=== PATIENT | female | born 1975 | race Two or more races ===

== ENCOUNTER 2017-01-20 17:56 | Emergency (ER) | payer MEDICAID ==
[~2017-01-20] VITALS: Ht 154.9 cm; Wt 62.1 kg
[2017-01-20] MEDS ORDERED: IV NS 0.9% 1,000 ML BAG IV ONE (18:00)
[2017-01-20] MEDS ORDERED: FAMOTIDINE/PF INJ 20 MG/2 ML VIAL IV ONE ×2 (18:00→18:05)
[2017-01-20] MEDS ORDERED: ONDANSETRON HCL/PF 4 MG/2 ML VIAL IVP ONE (18:00)
[2017-01-20] MEDS ORDERED: ONDANSETRON HCL/PF 4 MG/2 ML VIAL ONE (18:05)
[2017-01-20] MEDS ORDERED: IV SET PRIMARY 1 EA INFUS.SET MC ONE (18:05)
[2017-01-20] MEDS ORDERED: IV NS 0.9% 1,000 ML ONE (18:05)
--- NOTE | 2017-01-20 18:05 | NUR ---
PT TO ED ROOM 08. BBRA FROM HOME: NAUSEA, ABDOMINAL PAIN x 1 DAY. A/A/O. SIDE RAILS UP. HOB ELEVATED. CONNECTED TO MONITOR. MD AT BEDSIDE FOR EVAL.
--- NOTE | 2017-01-20 18:10 | NUR ---
LAC #20 IV ACCESS. BLOOD SAMPLE COLLECTED SENT TO LAB
[2017-01-20 18:17] LABS: BASOPHILS # (AUTO) 0.2 /CMM (0.0-0.2); BASOPHILS % (AUTO) 1.4 % (0.0-2.0); EOSINOPHILS # (AUTO) 0.1 /CMM (0.0-0.7); EOSINOPHILS % (AUTO) 0.5 % (0.0-6.0); MEAN CORPUSCULAR HEMOGLOBIN 28 PG (26.0-33.0)
[2017-01-20 18:20] LABS: HEMATOCRIT 40 % (33-45); HEMOGLOBIN 13.1 g/dL (11.5-14.8); LYMPHOCYTES # (AUTO) 1.4 /CMM (0.8-4.8); LYMPHOCYTES % (AUTO) 10.3 % (20.0-44.0); MEAN CORPUSCULAR HGB CONC 33 g/dl (31.0-36.0); MEAN CORPUSCULAR VOLUME 85 fL (82-100); MONOCYTES # (AUTO) 0.5 /CMM (0.1-1.30); MONOCYTES % (AUTO) 3.6 % (2.0-12.0); NEUTROPHILS # (AUTO) 11.8 /CMM (1.8-8.9); NEUTROPHILS % (AUTO) 84.2 % (43.0-81.0); PLATELET COUNT (AUTO) 344 /CMM (150-450); RDW COEFFICIENT OF VARIATION 12.4 (11.5-15.0); RED BLOOD CELL COUNT(AUTO) 4.63 MIL/uL (4.0-5.2)
[2017-01-20 18:31] LABS: CREATININE 0.9 mg/dL (0.6-1.3); POTASSIUM 3.1 mmol/L (3.5-5.1)
[2017-01-20 18:37] LABS: ALBUMIN 4.4 g/dL (3.4-5.0); BILIRUBIN,TOTAL 0.3 mg/dL (0.2-1.0)
--- NOTE | 2017-01-20 18:39 | NUR ---
PT UNABLE TO PROVIDE WITH URINE SAMPLE. WILL TRY AGAIN LATER. ED PROVIDER NOTIFIED.
[2017-01-20 18:45] LABS: CALCIUM, SERUM 9.6 mg/dL (8.5-10.1)
--- NOTE | 2017-01-20 19:00 | NUR ---
Phong choudhary in [facility] - 01/20/17 at 1939 by LISA URINE SAMPLE COLLECTED SENT TO LAB
--- NOTE | 2017-01-20 19:21 | NUR ---
PT RECEIVED REPORT FROM [facility]. PT APPEARS COMFORTABLE. DENIES ANY PAIN AT THIS TIME.
--- NOTE | 2017-01-20 19:23 | NUR ---
URINE COLLECTED. CALLED LAB FOR SECURITY SYSTEM ENGINEER.
--- NOTE | 2017-01-20 19:38 | NUR ---
MANAGER PROPERTY AT BEDSIDE
[2017-01-20 20:00] LABS: APPEARANCE,URINE Clear (CLEAR); BLOOD, URINE Moderate Ery/uL (NEGATIVE); COLOR,URINE Yellow (YELLOW); KETONES,URINE 15 (NEGATIVE); LEUKOCYTE ESTERASE ,URINE Negative (NEGATIVE); NITRITE, URINE Negative (NEGATIVE); PH,URINE 6.5 (5.0-8.0); PROTEIN,URINE 100 mg/dl (NEGATIVE); UGLUCOSE Negative (NEGATIVE); UROBILINOGEN,URINE 0.2 EU/dL (0.2)
[2017-01-20 20:03] LABS: BILIRUBIN,URINE SMALL (NEGATIVE)
[2017-01-20 20:12] LABS: ADD URINE CULTURE NO; BACTERIA,URINE Few /HPF (None Seen); PREGNANCY TEST URINE QUAL NEGATIVE (NEGATIVE); SQUAMOUS EPITHELIAL CELL,UR Few /HPF (None Seen); WBC,URINE NONE SEEN /HPF (0-3)
[2017-01-20] MEDS ORDERED: POTASSIUM CHLORIDE 20 MEQ TAB.PRT.SR PO ONE ×2 (21:10→21:30)
--- NOTE | 2017-01-20 21:19 | NUR ---
IV removed. Catheter intact and site benign. Pressure and 4x4 applied to site. No bleeding noted. Patient discharged to home in stable condition. Written and verbal after care instructions given. Patient verbalizes understanding of instruction. ambulatory with a steady gait
[2017-01-20 21:20] VITALS: BP 118/64
== END 2017-01-20 21:20 | disposition home or self-care (01) ==
LOC: ER 17:59
DX: K29.70 Gastritis, unspecified, without bleeding (principal)
CPT/HCPCS: 36415; 76705; 80048; 80076; 81001; 83690; 84703; 85025; 93005; 96361; 96374; 96375; 99285; A4606; J2405; J3490; J7030; Z7610; 81000-TC

== ENCOUNTER 2020-08-04 23:47 | Emergency (ER) | payer MEDICAID, OTHER ==
[~2020-08-04] VITALS: Ht 149.9 cm; Wt 53.5 kg
--- NOTE | 2020-08-05 00:03 | NUR ---
BIBRA FOR C/O UPPER ABDOMEN PAIN, AND N/V. PT DENIED DIARRHEA WITH LBM: TODAY. ALSO DENIED HEMATURIA OR DYSURIA. PT AMBULATORY TO BED 3. PLACED ON A MONITOR. VSS. WILL CONT TO MONITOR ,
--- NOTE | 2020-08-05 00:05 | NUR ---
AT BED SIDE
[2020-08-05] MEDS ORDERED: LIDOCAINE VISCOUS 2% UD 15 ML UDC ONE (00:14)
[2020-08-05] MEDS ORDERED: MAG HYDROX/AL HYDROX/SIMETH 30 ML UDC ONE (00:14)
[2020-08-05] MEDS ORDERED: SIMETHICONE 80 MG TAB.CHEW ONE (00:15)
[2020-08-05] MEDS ORDERED: ONDANSETRON 4 MG TAB.RAPDIS ONE (00:15)
[2020-08-05] MEDS ORDERED: ONDANSETRON 4 MG TAB.RAPDIS SL ONE (00:30)
[2020-08-05] MEDS ORDERED: MAG HYDROX/AL HYDROX/SIMETH 30 ML UDC PO ONE (00:30)
[2020-08-05] MEDS ORDERED: LIDOCAINE VISCOUS 2% UD 15 ML UDC MM ONE (00:30)
[2020-08-05] MEDS ORDERED: SIMETHICONE 80 MG TAB.CHEW PO ONE (00:30)
--- NOTE | 2020-08-05 00:43 | NUR ---
PT is medically stable for d/c. Patient discharged to home in stable condition. Rx and Written and verbal after care instructions given. Patient verbalizes understanding of instruction.
[2020-08-05 00:46] VITALS: BP 131/70
== END 2020-08-05 01:17 | disposition home or self-care (01) ==
LOC: ER 23:52
DX: K29.70 Gastritis, unspecified, without bleeding (principal); Z98.890 Other specified postprocedural states
CPT/HCPCS: 99284; Q0162

== ENCOUNTER 2020-09-07 22:32 | Emergency (ER) | payer OTHER ==
[~2020-09-07] VITALS: Ht 149.9 cm; Wt 53.5 kg
--- NOTE | 2020-09-07 23:01 | NUR ---
PATIENT CAME TO THE ER BED 11 C/O MID EPIGASTRIC SINCE 1600 OF TODAY. PATIENT STATES THAT SHE DID NOT EAT THE WHOLE DAY. PATIENT STATES THAT SHE HAS HAD THIS PAIN RECENTLY AND CAME TO THIS ER FOR THE SAME REASON. PATIENT IS AAOX.4 NO SOB. BREATHING EVENLY AND UNLABORED ON ROOM AIR. CONNECTED TO THE MONITOR.
[2020-09-07] MEDS ORDERED: ONDANSETRON HCL/PF 4 MG/2 ML VIAL ONE (23:13)
[2020-09-07] MEDS ORDERED: MORPHINE SULFATE INJ 4 MG/ML DISP.SYRIN ONE (23:13)
--- NOTE | 2020-09-07 23:24 | NUR ---
BLOOD COLLECTED AND SENT TO THE LAB FOR TESTING.
--- NOTE | 2020-09-07 23:24 | NUR ---
PATIENT CURRENTLY UNABLE TO PROVIDE A URINE SAMPLEL. WILL TRY AGAIN.
[2020-09-07] MEDS ORDERED: ONDANSETRON HCL/PF 4 MG/2 ML VIAL IVP ONE (23:30)
[2020-09-07] MEDS ORDERED: IV NS 0.9% 1,000 ML BAG IV ONE (23:30)
[2020-09-07] MEDS ORDERED: MORPHINE SULFATE INJ 2 MG/ML DISP.SYRIN IV ONE (23:30)
[2020-09-07 23:31] LABS: BASOPHILS % (AUTO) 0.3 % (0.0-2.0); HEMATOCRIT 36 % (33-45); HEMOGLOBIN 11.9 g/dL (11.5-14.8); LYMPHOCYTES # (AUTO) 1.3 /CMM (0.8-4.8); LYMPHOCYTES % (AUTO) 10.1 % (20.0-44.0); MEAN CORPUSCULAR HGB CONC 33 g/dl (31.0-36.0); MEAN CORPUSCULAR VOLUME 88 fL (82-100); MONOCYTES # (AUTO) 0.6 /CMM (0.1-1.30); MONOCYTES % (AUTO) 4.5 % (2.0-12.0); NEUTROPHILS # (AUTO) 10.9 /CMM (1.8-8.9); NEUTROPHILS % (AUTO) 85.1 % (43.0-81.0); PLATELET COUNT (AUTO) 297 /CMM (150-450); RED BLOOD CELL COUNT(AUTO) 4.08 MIL/uL (4.0-5.2); WHITE BLOOD COUNT (AUTO) 12.8 K/uL (4.3-11.0)
[2020-09-07 23:37] LABS: CALCIUM, SERUM 8.9 mg/dL (8.5-10.1); POTASSIUM 3.2 mmol/L (3.5-5.1)
[2020-09-07 23:43] LABS: ALBUMIN 3.5 g/dL (3.4-5.0); BILIRUBIN,DIRECT 0.1 mg/dL (0.0-0.2); BILIRUBIN,TOTAL 0.5 mg/dL (0.2-1.0)
[2020-09-08] MEDS ORDERED: LIDOCAINE VISCOUS 2% UD 15 ML UDC ONE (01:19)
[2020-09-08] MEDS ORDERED: MAG HYDROX/AL HYDROX/SIMETH 30 ML UDC ONE (01:19)
[2020-09-08] MEDS ORDERED: MAG HYDROX/AL HYDROX/SIMETH 30 ML UDC PO ONE (01:30)
[2020-09-08] MEDS ORDERED: LIDOCAINE VISCOUS 2% UD 15 ML UDC MM ONE (01:30)
--- NOTE | 2020-09-08 02:00 | NUR ---
IV removed. Catheter intact and site benign. Pressure and 4x4 applied to site. No bleeding noted.
--- NOTE | 2020-09-08 02:00 | NUR ---
Patient discharged to home in stable condition. Written and verbal after care instructions given. Patient verbalizes understanding of instruction.
[2020-09-08 02:05] VITALS: BP 125/71
[2020-09-08 02:41] LABS: BILIRUBIN,URINE NEGATIVE (NEGATIVE); COLOR,URINE YELLOW (YELLOW); LEUKOCYTE ESTERASE ,URINE NEGATIVE (NEGATIVE); NITRITE, URINE NEGATIVE (NEGATIVE); PROTEIN,URINE TRACE mg/dl (NEGATIVE); UGLUCOSE NEGATIVE (NEGATIVE); UROBILINOGEN,URINE 0.2 EU/dL (0.2)
[2020-09-08 02:47] LABS: BACTERIA,URINE Few /HPF (None Seen); RBC,URINE 0-2 /HPF (0-2); SQUAMOUS EPITHELIAL CELL,UR Few /HPF (None Seen)
== END 2020-09-08 02:06 | disposition home or self-care (01) ==
LOC: ER 22:36
DX: K29.70 Gastritis, unspecified, without bleeding (principal); Z98.890 Other specified postprocedural states
CPT/HCPCS: 36415; 80048; 80076; 81001; 83690; 84703; 85025; 96361; 96374; 96375; 99284; J2270; J2405; J7030; 87086-TC